=== PATIENT | female | born 2000 | race Caucasian/White ===

== ENCOUNTER 2021-07-26 12:54 | Outpatient (CLI) | payer OTHER ==
--- NOTE | 2021-07-26 14:29 | XRAY Report ---
PROCEDURE: Chest 2 View X-Ray INDICATIONS: URI TECHNIQUE: 2 view(s) of the chest. COMPARISON: None. FINDINGS: Surgical changes and devices: None. Lungs and pleura: No pleural effusions or pneumothorax. Lungs are clear. Mediastinum: Mediastinal contours are normal. Heart size is normal. Bones and chest wall: No suspicious bony abnormalities. Soft tissues appear unremarkable. IMPRESSION: No acute cardiopulmonary pathology. Reviewed by: Gurwinder Rodriguez MD on 07/26/2021 2:28 PM PDT Approved by: Gurwinder Rodriguez MD on 07/26/2021 2:28 PM PDT Station ID: [id number]
== END 2021-07-26 23:59 | disposition home or self-care (01) ==
LOC: DI.N 12:54
PROVIDERS: ATTEND Family Medicine
DX: J06.9 Acute upper respiratory infection, unspecified (principal)

== ENCOUNTER 2024-02-24 09:59 | Outpatient (CLI) | payer OTHER ==
[~2024-02-24 09:59] MED LIST: GADOTERATE MEGLUMINE 7.5 MMOL/15 ML VIAL ONE
[2024-02-24] MEDS: GADOTERATE MEGLUMINE 7.5 MMOL/15 ML VIAL IVP ONE (11:10)
--- NOTE | 2024-02-26 13:35 | MRI Report ---
PROCEDURE: MRI brain with and without contrast INDICATIONS: 23-year-old with chronic headache and history of seizures TECHNIQUE: Multiplanar multisequential MR images of the brain were obtained before and after intrave nous contrast administration. COMPARISON: None. FINDINGS: CSF spaces: Basal cisterns are patent. No extra-axial fluid collections. Ventricles are normal in size and shape. Brain: No midline shift. No intracranial bleeds or masses. No abnormal intracranial enhancement. The brainstem appears normal. Diffusion-weighted images demonstrate no acute infarct. Normal intrav ascular flow voids are present. Skull and face: Calvarial marrow is normal in signal. Orbits appear normal. Sinuses: Sinuses and mastoids appear clear. IMPRESSION: Normal MRI of the brain with and without contrast Reviewed by: Mychal Wellington MD on 02/26/2024 12:33 PM RJ Approved by: Mychal Wellington MD on 02/26/2024 12:33 PM RJ Station ID: [id number]
== END 2024-02-24 10:00 | disposition home or self-care (01) ==
LOC: DI 09:59
PROVIDERS: ATTEND Physician Assistant
DX: R51.9 Headache, unspecified (principal); Z86.69 Personal history of other diseases of the nervous system and sense organs

== ENCOUNTER 2024-06-08 08:00 | Outpatient (CLI) | payer OTHER | END 2024-06-08 23:59 | disposition home or self-care (01) | LOC: LAB.N 08:00 | PROVIDERS: ATTEND Physician Assistant | DX: N30.00 Acute cystitis without hematuria (principal) | CPT/HCPCS: 87086 ==